=== PATIENT | female | born 1950 | race Caucasian/White ===

== ENCOUNTER 2020-10-26 21:09 | Emergency (ER) | payer OTHER ==
[~2020-10-26] VITALS: Ht 157.5 cm; Wt 77.1 kg
[2020-10-26] MEDS ORDERED: TOPROL XL50 M1 (21:21)
[2020-10-26] MEDS ORDERED: SYNTHROID75 MCG (21:22)
[2020-10-26] MEDS ORDERED: SYNTHROID50 MCG (21:22)
[2020-10-26] MEDS ORDERED: PRAVASTATIN SOD40 MG (21:22)
[2020-10-26] MEDS ORDERED: FORTAMET500 MG (21:22)
[2020-10-26] MEDS ORDERED: ATACAND16 MG (21:22)
[2020-10-27] MEDS ORDERED: DICY20TA PO (01:41)
[2020-10-27] MEDS ORDERED: PEPCID40 MG PO (01:41)
[2020-10-27] MEDS ORDERED: DICLOFENAC SOD100 MG PO (01:41)
== END 2020-10-27 02:03 | disposition home or self-care (01) ==
LOC: ER 21:09 → EDBD 23:18 → ER 10-27 02:03
DX: N20.2 Calculus of kidney with calculus of ureter (principal); R10.32 Left lower quadrant pain